=== PATIENT | male | born 1960 | race Caucasian/White ===

== ENCOUNTER → 2017-11-23 | Outpatient (CLI) | payer SELFPAY ==
--- NOTE | 2017-11-23 16:01 | Diagnostic Imaging Report ---
EXAM: US venous lower extremity, bilateral. INDICATION: Elevated d-dimer. COMPARISON: None. TECHNIQUE: Duplex, arce-scale and color-flow imaging of the bilateral lower extremities venous system was performed. FINDINGS: The bilateral common femoral vein, superficial femoral vein, profunda femoris and popliteal veins are normal. These vessels show normal compressibility, color flow and Doppler augmentation. The deep calf veins demonstrate no distinct intraluminal thrombus where seen. IMPRESSION: Negative venous Doppler of the bilateral lower extremities. Dictated by: Dictated on workstation # [id number]
== END ==
LOC: RAD 15:06
PROVIDERS: ATTEND Nurse Practitioner Family
DX: R79.1 Abnormal coagulation profile (principal)
CPT/HCPCS: 93970

== ENCOUNTER 2021-09-14 05:37 | Outpatient (CLI) | payer MEDICAID | END 2021-09-17 12:01 | disposition home or self-care (01) | LOC: PREOP 05:37 | PROVIDERS: ATTEND Otolaryngology Otolaryngology/Facial Plastic Surgery | DX: Z01.818 Encounter for other preprocedural examination (principal) ==

== ENCOUNTER 2021-09-21 07:09 | Day surgery (SDC) | payer MEDICAID ==
[2021-09-21] VITALS (11 sets, daily range): BP systolic 106–125; BP diastolic 66–103
[~2021-09-21] VITALS: Ht 185.5 cm; Wt 68.0 kg
[2021-09-21] MEDS ORDERED: MUPIROCIN 2% OINT 22 GM (BACTROBAN) TUBE ONE (07:18)
[2021-09-21] MEDS ORDERED: LIDOCAINE/EPI 1%-1:200,000 (XYLOCAINE) 30 ML VIAL ONE (07:18)
[2021-09-21] MEDS: LACTATED RINGERS 1,000 ML IV PRN ×2 (07:35→09:05)
[2021-09-21 07:39] LABS: BASOPHILS # (AUTO) 0.1 10^3/uL (0.0-0.1); BASOPHILS % (AUTO) 1 % (0-10); EOSINOPHILS # (AUTO) 0.3 10^3/uL (0.0-0.3); EOSINOPHILS % (AUTO) 2 % (0-10); HEMATOCRIT 42 % (40-54); HEMOGLOBIN 13.1 g/dL (13.3-17.7); LYMPHOCYTES # (AUTO) 3.7 10^3/uL (1.0-4.0); LYMPHOCYTES % (AUTO) 27 % (12-44); MEAN CORPUSCULAR HEMOGLOBIN 29 pg (25-34); MEAN CORPUSCULAR HGB CONC 31 g/dL (32-36); MEAN CORPUSCULAR VOLUME 94 fL (80-99); MEAN PLATELET VOLUME 8.2 fL (9.0-12.2); MONOCYTES # (AUTO) 0.9 10^3/uL (0.0-1.0); MONOCYTES % (AUTO) 7 % (0-12); NEUTROPHILS # (AUTO) 8.4 10^3/uL (1.8-7.8); NEUTROPHILS % (AUTO) 62 % (42-75); PLATELET COUNT 374 10^3/uL (130-400); WHITE BLOOD COUNT 13.5 10^3/uL (4.3-11.0)
[2021-09-21 08:02] LABS: CALCIUM 9.7 MG/DL (8.5-10.1); CREATININE SERUM 0.7 MG/DL (0.60-1.30); POTASSIUM 3.6 MMOL/L (3.6-5.0)
[2021-09-21] MEDS ORDERED: proPOfol 200 MG/20 ML (DIPRIVAN) VIAL IV ONE (08:17)
[2021-09-21] MEDS ORDERED: MIDAZOLAM 2 MG/2 ML (VERSED) VIAL ONE (08:17)
[2021-09-21] MEDS ORDERED: fentaNYL INJ 100 MCG/2 ML AMP ONE (08:17)
[2021-09-21] MEDS ORDERED: GLYCOPYRROLATE 0.2 MG/ML (ROBINUL) 2 ML VIAL ONE (08:17)
[2021-09-21] MEDS ORDERED: ONDANSETRON 4 MG/2 ML (SDV) Z0FRAN ONE (08:17)
[2021-09-21] MEDS ORDERED: ROCURONIUM 50 MG/5 ML (ZEMURON) VIAL IV ONE (08:17)
[2021-09-21] MEDS ORDERED: LIDOCAINE PF 2% 5 ML (XYLOCAINE) VIAL ONE (08:17)
[2021-09-21] MEDS ORDERED: NEOSTIGMINE 3 MG/3 ML VIAL ONE (08:17)
[2021-09-21] MEDS ORDERED: NALT50TA PO (08:33)
[2021-09-21] MEDS ORDERED: SERT-413 PO (08:33)
[2021-09-21] MEDS ORDERED: GABA-486 PO (08:33)
--- NOTE | 2021-09-21 08:40 | Progress Note-Pre Operative ---
Pre-Operative Progress Note H&P Reviewed The H&P was reviewed, patient examined and no changes noted. Date Seen by Provider: Sep 21, 2021 Time Seen by Provider: 08:00 Date H&P Reviewed: Sep 21, 2021 Time H&P Reviewed: 08:00 Pre-Operative Diagnosis: Lower Lip Lesion KELLIE CORTEZ MD Sep 21, 2021 08:40
--- NOTE | 2021-09-21 09:16 | Progress Note-Post Operative ---
Post-Operative Progess Note Surgeon (s)/Chief Operating Officer (s) Surgeon KELLIE CORTEZ MD Chief Operating Officer n/a Pre-Operative Diagnosis Lower Lip Lesion Post-Operative Diagnosis same Post-Op Procedure Note Date of Procedure: Sep 21, 2021 Name of Procedure Performed: Excision of Lower Lip Lesion Description & Findings Description and Findings: n/a Anesthesia Type get Estimated Blood Loss minimal Packing none. Specimen(s) collected/removed lower lip lesion to pathology KELLIE CORTEZ MD Sep 21, 2021 09:16
[2021-09-21] MEDS ORDERED: ACETAMINOPHEN 325 MG TABLET PO PRN (09:30)
[2021-09-21] MEDS ORDERED: SEVOFLURANE (ULTANE) 15 ML INHAL SOLN ONE (09:38)
[2021-09-21] MEDS ORDERED: HYDROmorphone 2 MG/ML VIAL (DILAUDID) IV ONE (10:00)
[2021-09-21] MEDS ORDERED: ONDANSETRON 4 MG/2 ML (SDV) Z0FRAN IVP PRN (10:00)
[2021-09-21] MEDS ORDERED: morphine INJ 10 MG/ML 1ML (SYR OR VIAL) IVP ONE (10:00)
--- NOTE | 2021-09-26 07:14 | Anesthesia-General Post-Op ---
General Patient Condition Mental Status/LOC: Same as Preop Cardiovascular: Satisfactory Nausea/Vomiting: Absent Respiratory: Satisfactory Pain: Controlled Complications: Absent Post Op Complications Complications None Follow Up Care/Instructions Patient Instructions None needed. Anesthesia/Patient Condition Patient Condition Post-dated progress note: Patient was seen on 09-21-21 at approximately 1030 after the procedure and he was doing well, no complaints, stable vital signs, no apparent adverse anesthesia AME Perez DO Sep 26, 2021 07:14
== END 2021-09-21 11:40 | disposition home or self-care (01) ==
LOC: SDC 07:09
PROVIDERS: ATTEND Otolaryngology Otolaryngology/Facial Plastic Surgery
DX: C44.02 Squamous cell carcinoma of skin of lip (principal)
CPT/HCPCS: 36415; 80048; 85025; 87081; 88305; 93005